=== PATIENT | male | born 1950 | race Two or more races ===

== ENCOUNTER → 2016-08-29 | Outpatient (CLI) | payer MEDICARE ==
[2016-08-29 13:18] LABS: CALCIUM LEVEL 9.4 MG/DL (8.8-10.2); CREATININE FOR GFR 1.37 MG/DL (0.70-1.30); GLOMERULAR FILTRATION RATE 55.5 (>49)
[2016-08-29 13:21] LABS: POTASSIUM SERUM 5.4 MEQ/L (3.5-5.1)
== END ==
LOC: M SMT 10:40
PROVIDERS: ATTEND Nurse Practitioner Women's Health
DX: R97.20 Elevated prostate specific antigen [PSA] (principal); N40.1 Benign prostatic hyperplasia with lower urinary tract symptoms; Z80.2 Family history of malignant neoplasm of other respiratory and intrathoracic organs
CPT/HCPCS: 36415; 80048; 81001; 87086; G0463

== ENCOUNTER → 2016-09-08 | Outpatient (CLI) | payer MEDICARE ==
--- NOTE | 2016-09-15 10:19 | REP ---
Multi parametric prostate MRI without and with IV gadolinium: History: Elevated PSA level. Comparisons: Transrectal sonography August,. TECHNIQUE: Using a phased array surface coil, small field of view imaging was acquired using T2-weighted scans in the axial, coronal, and sagittal imaging planes. Small field of view diffusion-weighted sequences are acquired. Small field of view axial T1-weighted scans are acquired dynamically after the intravenous administration of 8.5 mL of ProHance, half-dose protocol. Prostate MRI findings: Prostate glandular dimensions are 5.7 x 4.7 x 5.3 cm, 60.65 ml volume. Pre- and postcontrast images show some magnetic field susceptibility artifact in the right inguinal soft tissues consistent with previous right inguinal herniorrhaphy. No evidence of abdominal wall defect is seen. Cortical and medullary bone signal intensity are normal. There is no evidence of skeletal metastatic disease or adenopathy. There is sigmoid colon diverticulosis. In the prostate, there is nodular enlargement of the central gland with a large adenomatous nodule anteriorly. In the right mid lateral peripheral zone, there is a geographic area of low signal intensity on T2-weighted scans with no reduction in ADC displaying a type 2 enhancement curve. This has a 0.95 ml volume with diameters of 1.9 x 0.7 x 1.0 cm. Overall level of suspicion is equivocal. This is lesion #1. Lesion #2 is in the right apical posterior transition zone measuring 1.4 x 1.3 x 1.0 cm with a volume calculated of 1.17 ml. It has intermediate signal intensity characteristics on T2-weighted scans with no reduction in ADC on diffusion weighted images. There is a type 3 nodular enhancement pattern on dynamic postcontrast imaging. Overall level of clinical significance is equivocal. Lesion #3 measures 1.4 x 0.7 x 1.0 cm, 0.67 ml volume. It is in the left apical transition zone. There is a geographic area of low T2 signal intensity with no reduction in ADC on diffusion weighted scans and a nodular type 3 enhancement curve pattern on dynamic postcontrast imaging. Overall level of clinical suspicion is equivocal. Impression: Nodular hypertrophy of the central gland. No evidence of extraprostatic disease. Three equivocal targets are identified and submitted for consideration of MR ultrasound fusion directed needle biopsy. Signed by Patrice Mcleod MD 09/15/2016 03:33 P
== END | disposition home or self-care (01) ==
LOC: M RAD 13:15
PROVIDERS: ATTEND Nurse Practitioner Women's Health
DX: R97.20 Elevated prostate specific antigen [PSA] (principal); R93.8 Abnormal findings on diagnostic imaging of other specified body structures
CPT/HCPCS: 72197; A9576

== ENCOUNTER → 2016-10-03 | Outpatient (CLI) | payer MEDICARE | LOC: M SMT PRO 08:07 | PROVIDERS: ATTEND Nurse Practitioner Women's Health | DX: R97.20 Elevated prostate specific antigen [PSA] (principal) ==

== ENCOUNTER → 2016-10-03 | Outpatient (CLI) | payer MEDICARE ==
--- NOTE | 2016-10-03 13:23 | REP ---
Prostate sonography: History: Elevated PSA. Sonographic findings: Trans rectal prostate sonography demonstrates unremarkable seminal vesicles. Prostate gland is heterogeneously enlarged with calcifications and cystic changes noted. Glandular dimensions are measured at 5.4 x 3.7 x 5.5 cm with a calculated glandular volume of 57.6 ml. Transrectal sonographic guidance provided to Dr. Sanchez who performed trans rectal ultrasound guided needle biopsy procedure . Signed by Patrice Mcleod MD 10/03/2016 01:14 P
== END ==
LOC: M SMT PRO 08:45
PROVIDERS: ATTEND Urology
DX: N40.0 Benign prostatic hyperplasia without lower urinary tract symptoms (principal); N41.8 Other inflammatory diseases of prostate
CPT/HCPCS: 55700; 76872; 76942; G0416

== ENCOUNTER → 2017-07-08 | Outpatient (REF) | payer MEDICARE | LOC: M SMT 12:56 | PROVIDERS: ATTEND Nurse Practitioner Women's Health | DX: R31.0 Gross hematuria (principal) ==

== ENCOUNTER 2018-04-22 09:52 | Day surgery (SDC) | payer MEDICARE ==
[~2018-04-22 09:52] MED LIST: LIDOCAINE 1% MDV 20ML VIAL SQ; LIDOCAINE 2% INJ 100 MG/5 ML SDV (FOR ANES.) As Ordered; MIDAZOLAM INJ 2 MG/2 ML VIAL (J2250) As Ordered; PROPOFOL 200 MG/20 ML VIAL As Ordered; fentaNYL 250 MCG/5 ML INJECTION (J3010) As Ordered
[2018-04-22] MEDS ORDERED: BACITRACIN OINT 30GM As Ordered (10:41)
[2018-04-22] MEDS ORDERED: METHYLENE BLUE 0.5% (5MG/ML) 10 ML AMP (PROVAYBLUE)(Q9968 PER 1MG) As Ordered (10:41)
[2018-04-22] MEDS ORDERED: EPINEPHrine 1MG/ML INJ 30ML MD-VIAL As Ordered (10:41)
[2018-04-22] MEDS: LR 1,000 ML IV (11:10)
[2018-04-22 11:18] LABS: BEDSIDE GLUCOSE 138 MG/DL (80-115)
[2018-04-22] MEDS ORDERED: MIDAZOLAM INJ 2 MG/2 ML VIAL (J2250) As Ordered (11:41)
[2018-04-22] MEDS: LIDOCAINE W/EPINEPHRINE 1% 20ML VIAL As Ordered (12:15)
[2018-04-22] MEDS ORDERED: PROPOFOL 200 MG/20 ML VIAL As Ordered (12:23)
== END 2018-04-22 14:05 | disposition home or self-care (01) ==
LOC: M SDC 09:52
DX: C44.311 Basal cell carcinoma of skin of nose (principal); I10 Essential (primary) hypertension; E11.9 Type 2 diabetes mellitus without complications; E78.00 Pure hypercholesterolemia, unspecified; R06.83 Snoring; N40.0 Benign prostatic hyperplasia without lower urinary tract symptoms; Z79.899 Other long term (current) drug therapy; Z79.82 Long term (current) use of aspirin; Z79.84 Long term (current) use of oral hypoglycemic drugs; Z87.442 Personal history of urinary calculi
CPT/HCPCS: 11641

== ENCOUNTER → 2019-02-01 | Outpatient (REF) | payer MEDICARE ==
[~2019-02-01] MED LIST changes: +ASPI81TA26 PO; +ATEN50TA2 PO; +FINA5TAB2 PO; +FLOM0.4C39 PO; -LIDOCAINE 1% MDV 20ML VIAL SQ; -LIDOCAINE 2% INJ 100 MG/5 ML SDV (FOR ANES.) As Ordered; +LISI10TA4 PO; +LOVA40TA PO; +METF10004 PO; -MIDAZOLAM INJ 2 MG/2 ML VIAL (J2250) As Ordered; -PROPOFOL 200 MG/20 ML VIAL As Ordered; -fentaNYL 250 MCG/5 ML INJECTION (J3010) As Ordered
== END ==
LOC: M LAB LCGH 11:58
PROVIDERS: ATTEND Physician Assistant
DX: D48.5 Neoplasm of uncertain behavior of skin (principal)

== ENCOUNTER → 2019-03-04 | Outpatient (REF) | payer MEDICARE | LOC: M LAB LCGH 15:34 | PROVIDERS: ATTEND Physician Assistant | DX: D48.5 Neoplasm of uncertain behavior of skin (principal) ==

== ENCOUNTER → 2019-06-21 | Outpatient (REF) | payer MEDICARE ==
[2019-06-21 13:35] LABS: APPEARANCE, URINE CLEAR (CLEAR); BACTERIA, URINE AUTO NEGATIVE (NEGATIVE); BILIRUBIN, URINE AUTO NEGATIVE (NEGATIVE); BLOOD, URINE BLOOD NEGATIVE (NEGATIVE); COLOR, URINE YELLOW (YELLOW); GLUCOSE, URINE (UA) AUTO NEGATIVE (NEGATIVE); KETONE, URINE AUTO NEGATIVE (NEGATIVE); LEUKOCYTE ESTERASE, URINE AUTO NEGATIVE (NEGATIVE); MUCUS, URINE SMALL (NEGATIVE); NITRITE, URINE AUTO NEGATIVE (NEGATIVE); PROTEIN, URINE AUTO NEGATIVE (NEGATIVE); RBC, URINE AUTO 0 /HPF (0-3); SPECIFIC GRAVITY URINE AUTO 1.014 (1.002-1.035); SQUAMOUS EPITHELIAL CELL UR AU 0 /HPF (0-6); UROBILINOGEN, URINE AUTO 0.2 mg/dL (0.0-2.0); WBC, URINE AUTO 0 /HPF (0-3)
== END ==
LOC: M SMT 13:16
PROVIDERS: ATTEND Nurse Practitioner Women's Health
DX: N40.1 Benign prostatic hyperplasia with lower urinary tract symptoms (principal)
CPT/HCPCS: 81001; 87086; G0463

== ENCOUNTER → 2020-09-26 | Outpatient (REF) | payer MEDICARE ==
[~2020-09-26] MED LIST changes: +LISI10TA22 PO; -LISI10TA4 PO
== END ==
LOC: M LAB REF 18:32
PROVIDERS: ATTEND Physician Assistant
DX: L57.0 Actinic keratosis (principal); L57.8 Other skin changes due to chronic exposure to nonionizing radiation

== ENCOUNTER → 2022-01-01 | Outpatient (REF) | payer MEDICARE | LOC: M SFHCDERM 14:13 | PROVIDERS: ATTEND Physician Assistant | DX: C44.602 Unspecified malignant neoplasm of skin of right upper limb, including shoulder (principal) ==

== ENCOUNTER → 2024-03-28 | Outpatient (REF) | payer MEDICARE | LOC: M SFHCDERM 17:45 | PROVIDERS: ATTEND Physician Assistant | DX: L72.0 Epidermal cyst (principal) ==